=== PATIENT | male | born 1995 | race Caucasian/White ===

== ENCOUNTER 2017-01-24 12:11 | Emergency (ER) | payer MEDICAID ==
[~2017-01-24] VITALS: Ht 170.2 cm; Wt 62.6 kg
[2017-01-24 12:13] VITALS: BP 146/63
--- NOTE | 2017-01-24 14:20 | NUR ---
21/M BIB FAMILY C/O SOB x TODAY @ 0800. PT HAS HX OF ASTHMA AND ANXIETY; DENIES N/V/D; SKIN IS PINK/WARM/DRY; AAOX4 WITH EVEN AND STEADY GAIT; LUNGS CLEAR BL; HR EVEN AND REGULAR; PT DENIES ANY FEVER AT THIS TIME; PATIENT STATES PAIN OF 3/10 AT THIS TIME; VSS; PATIENT POSITIONED FOR COMFORT; HOB ELEVATED; BEDRAILS UP X2; BED DOWN. ER MD MADE AWARE OF PT STATUS.
--- NOTE | 2017-01-24 14:24 | NUR ---
DR WELCH AT BEDSIDE
[2017-01-24 14:44] VITALS: BP 113/65
--- NOTE | 2017-01-24 14:44 | NUR ---
Patient discharged with v/s stable. Written and verbal after care instructions given and explained. Patient alert, oriented and verbalized understanding of instructions. Ambulatory with steady gait. All questions addressed prior to discharge. ID band removed. Patient advised to follow up with PMD. Rx of PREDNISONE, ALBUTEROL INHALER given. Patient educated on indication of medication including possible reaction and side effects. Opportunity to ask questions provided and answered.
== END 2017-01-24 14:44 | disposition home or self-care (01) ==
LOC: MED 12:11
DX: J45.901 Unspecified asthma with (acute) exacerbation (principal); R03.0 Elevated blood-pressure reading, without diagnosis of hypertension

== ENCOUNTER 2017-03-06 21:58 | Emergency (ER) | payer MEDICAID ==
[~2017-03-06] VITALS: Ht 160 cm; Wt 62.1 kg
[2017-03-06 22:09] VITALS: BP 130/66
--- NOTE | 2017-03-06 23:10 | NUR ---
21Y M C/O LEFT CHEST TO LEFT RIB PAIN 08/05 X1 MONTH, ALSO C/O LEFT SIDE OF BODY ACHING. PT IS AAOX4, NO S/S OF SOB/DISTRESS, LUNG SOUNDS CLEAR BL, HR EVEN AND REGULAR; DENIES N/V/D; SKIN IS PINK/WARM/DRY; AMBULATORY WITH STEADY GAIT. PATIENT POSITIONED FOR COMFORT; HOB ELEVATED; BEDRAILS UP X2; BED DOWN. ER MD MADE AWARE OF PT STATUS.
--- NOTE | 2017-03-06 23:11 | NUR ---
PT TAKEN TO BED 8
--- NOTE | 2017-03-06 23:15 | NUR ---
Dr. Pabon evaluating patient at bedside.
--- NOTE | 2017-03-06 23:44 | NUR ---
X-Ray at bedside.
[2017-03-07 00:28] VITALS: BP 145/75
== END 2017-03-07 00:28 | disposition home or self-care (01) ==
LOC: MED 21:58
DX: R07.89 Other chest pain (principal); J45.909 Unspecified asthma, uncomplicated
CPT/HCPCS: 71010; 93005; 99284